=== PATIENT | female | born 1960 | race Caucasian/White ===

== ENCOUNTER 2016-08-12 21:28 | Inpatient (IN) | payer OTHER ==
--- NOTE | 2016-08-12 21:59 | PDOC ---
History of Present Illness - General Chief Complaint: Weakness Stated Complaint: WEAKNESS Time Seen by Provider: 08/12/16 21:43 History Source: Patient, Spouse Exam Limitations: No Limitations - History of Present Illness Initial Comments: 08/12/16 22:23 56-year-old female with a history of IDDM, bipolar, schizophrenia, hyperlipidemia, cardiac valve disease, hypothyroid presents to the emergency department with her and sister who states Faviola has been extremely lethargic with altered mental status which has been progressing over the past 3 days. Patient denies any headache, dizziness, lightheadedness, neck pain, chest pain, shortness of breath, abdominal pains, extremity numbness or tingling sensation. Patient was seen by her PMD 3 days ago and a follow-up visit is scheduled for 2 weeks from now to review the results of her blood work. Timing/Duration: other (x3d) Associated Symptoms: denies: chest pain, cough, diaphoresis, headaches, nausea/ vomiting, seizure Past History - Travel Traveled outside of the country in the last 30 days: No Close contact w/someone who was outside of country & ill: No - Past Medical History Allergies/Adverse Reactions: Allergies Allergy/AdvReac Type Severity Reaction Status Date / Time pimozide [From Orap] Allergy DYSTONIC Verified 08/12/16 21:33 REACTION risperidone [From Risperdal] AdvReac ANXIETY Verified 08/12/16 21:33 Home Medications: Ambulatory Orders Aripiprazole [Abilify -] 30 mg PO DAILY #30 tablet 04/20/15 Bupropion HCl [Wellbutrin Xl -] 300 mg PO DAILY #15 tab.sr.24h 04/22/15 Levothyroxine [Synthroid -] 150 mcg PO DAILY@0700 #30 tablet 04/22/15 Simvastatin [Zocor -] 20 mg PO HS #30 tablet 04/22/15 Sitagliptin Phosphate [Januvia] 100 mg PO DAILY #30 tablet 04/22/15 Insulin Glargine,Hum.rec.anlog [Lantus (nf)] 56 units SQ ACBK 11/04/15 Insulin Lispro [Humalog] 0 unit SQ AC 11/04/15 Hydrocodone/Acetaminophen [Vicodin 5-300 mg Tablet] 1 - 2 tab PO TID PRN #40 tablet MDD 6 11/09/15 Anemia: No Asthma: No Cancer: No Cardiac Disorders: Yes (LEAKY VALVE) CVA: No COPD: No CHF: No Dementia: No Diabetes: Yes GI Disorders: Yes Disorders: No HTN: Yes Hypercholesterolemia: Yes 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) Psychiatric Problems: Yes (BIPOLAR, DEPRESSION.) Suicide Attempt (Hx): No (DENIES) Seizures: No Thyroid Disease: Yes (HYPOTHYROIDISM) - Surgical History Abdominal Surgery: No Appendectomy: No Cardiac Surgery: No Cholecystectomy: No Lung Surgery: No Neurologic Surgery: No Orthopedic Surgery: Yes (RIGHT KNEE replacement 04/27/2011 /ltknee pinning ) - Immunization History Immunization Up to Date: No - Psycho/Social/Smoking Cessation Hx Anxiety: Yes Suicidal Ideation: No Smoking Status: No Smoking History: Never smoked Have you smoked in the past 12 months: No Number of Cigarettes Smoked Daily: 0 Hx Alcohol Use: No Drug/Substance Use Hx: No Substance Use Type: None Hx Substance Use Treatment: No Review of Systems - Review of Systems Able to Perform ROS?: Yes Comments:: 08/12/16 21:58 CONSTITUTIONAL: +generalized weakness, malaise, Absent: fever, chills, diaphoresis, loss of appetite HEENT: Absent: rhinorrhea, nasal congestion, throat pain, throat swelling, difficulty swallowing, mouth swelling, ear pain, eye pain, visual Changes CARDIOVASCULAR: Absent: chest pain, loss of consciousness, palpitations, irregular heart rate, peripheral edema RESPIRATORY: Absent: cough, shortness of breath, dyspnea with exertion, orthopnea, wheezing, stridor, hemoptysis GASTROINTESTINAL: Absent: abdominal pain, abdominal distension, nausea, vomiting, diarrhea, constipation, melena, hematochezia GENITOURINARY: Absent: dysuria, frequency, urgency, hesitancy, hematuria, flank pain, genital pain MUSCULOSKELETAL: Absent: myalgia, arthralgia, joint swelling SKIN: Absent: rash, itching, pallor HEMATOLOGIC/IMMUNOLOGIC: Absent: easy bleeding, easy bruising, lymphadenopathy, frequent infections ENDOCRINE: Absent: unexplained weight gain, unexplained weight loss, heat intolerance, cold intolerance NEUROLOGIC: +unsteady gait, mental status changes Absent: headache, focal weakness or paresthesias, dizziness, seizure, bladder or bowel incontinence PSYCHIATRIC: Absent: anxiety, depression, suicidal or homicidal ideation, hallucinations. Is the patient limited Maltese proficient: No *Physical Exam - Vital Signs Last Vital Signs Temp Pulse Resp BP Pulse Ox 97.5 F L 70 18 127/69 98 08/12/16 21:31 08/12/16 21:31 08/12/16 21:31 08/12/16 21:31 08/12/16 21:31 - Physical Exam Comments: 08/12/16 21:59 GENERAL: Well developed, well nourished. Awake and alert. No acute distress. HEENT: Normocephalic, atraumatic. PERRLA, EOMI. No conjunctival pallor. Sclera are non- icteric. Moist mucous membranes. Oropharynx is clear. NECK: Supple. Full ROM. No JVD. Carotid pulses 2+ and symmetric, without bruits. No thyromegaly. No lymphadenopathy. CARDIOVASCULAR: Regular rate and rhythm. No murmurs, rubs, or gallops. Distal pulses are 2+ and symmetric. PULMONARY: No evidence of respiratory distress. Lungs clear to auscultation bilaterally. No wheezing, rales or rhonchi. ABDOMINAL: Soft. Non-tender. Non-distended. No rebound or guarding. No organomegaly. Normoactive bowel sounds. MUSCULOSKELETAL Normal range of motion at all joints. No bony deformities or tenderness. No CVA tenderness. EXTREMITIES: No cyanosis. No clubbing. No edema. No calf tenderness. SKIN: Warm and dry. Normal capillary refill. No rashes. No jaundice. NEUROLOGICAL: Alert, awake, appropriate. Cranial nerves 2-12 intact. No deficits to light touch and temperature in face, upper extremities and lower extremities. No motor deficits in the in face, upper extremities and lower extremities. Normoreflexic in the upper and lower extremities. Normal speech. Toes are down- going bilaterally. Gait is normal without ataxia. PSYCHIATRIC: Cooperative. Good eye contact. Appropriate mood and affect. ED Treatment Course - LABORATORY CBC & Chemistry Diagram: 08/12/16 22:05 08/12/16 22:05 - RADIOLOGY Radiograph Interpretation: 08/12/16 23:40 CT head: No hemorrhage. No visible mass. No hydrocephalus shift or herniation. *DC/Admit/Observation/Transfer Diagnosis at time of Disposition: Altered mental status Qualifiers: Altered mental status type: unspecified Qualified Code(s): R41.82 - Altered mental status, unspecified - Discharge Dispostion Condition at time of disposition: Guarded Admit: Yes - Referrals Progress Note - Progress Note Progress Note: 2201hrs: Spoke to Dr. Ryan/ will admit AMS
[2016-08-12 22:22] LABS: BASOPHIL 0.4 % (0-2.0); EOSINOPHIL 0.5 % (0-4.5); MCH 28.8 pg (25.7-33.7); MCHC 33.2 g/dl (32.0-36.0); MEAN CELL VOLUME 86.7 fl (80-96); MEAN PLT VOLUME 8.1 fl (7.5-11.1); NEUTROPHILS 74.7 % (42.8-82.8); PLATELET COUNT 164 K/MM3 (134-434); WHITE BLOOD COUNT 8.1 K/mm3 (4.0-10.0)
[2016-08-12 22:50] LABS: ALBUMIN 3.9 g/dl (3.4-5.0); ANION GAP 6 (8-16); BILIRUBIN,TOTAL 0.5 mg/dL (0.2-1.0); CALCIUM 8.5 mg/dL (8.5-10.1); CO2 32 mmol/L (21-32); COCKROFT - GAULT 66.6655; CREATININE 1.2 mg/dL (0.55-1.02); GLUCOSE,RANDOM 128 mg/dL (74-106); SGOT/AST 29 U/L (15-37); SGPT/ALT 46 U/L (12-78); TOT PROT 7.3 g/dl (6.4-8.2)
[2016-08-12 22:53] LABS: ALK PHOS 101 U/L (45-117); TROPONIN I < 0.02 ng/ml (0.00-0.05)
[2016-08-12] MEDS: SODIUM CHLORIDE 1,000 ML IV SCH (23:27)
[2016-08-13 02:08] VITALS: BMI 40.1
[2016-08-13] MEDS: INSULIN DETEMIR 100 UNITS/ML MDV SQ SCH ×2 (06:27→16:51)
[2016-08-13] MEDS: LEVOTHYROXINE NA 125 MCG TABLET (FP) PO SCH (06:28)
[2016-08-13 08:37] LABS: ALBUMIN 3.5 g/dl (3.4-5.0); ALK PHOS 91 U/L (45-117); ANION GAP 5 (8-16); BILIRUBIN,TOTAL 0.4 mg/dL (0.2-1.0); CALCIUM 8.2 mg/dL (8.5-10.1); CO2 30 mmol/L (21-32); COCKROFT - GAULT 91.6045; CREATININE 0.9 mg/dL (0.55-1.02); GLUCOSE,RANDOM 56 mg/dL (74-106); SGOT/AST 26 U/L (15-37); SGPT/ALT 38 U/L (12-78); THYROID STIMULATING HORMONE 0.97 uIU/ml (0.358-3.74); TOT PROT 6.4 g/dl (6.4-8.2)
[2016-08-13 09:02] LABS: C-REACTIVE PROTEIN 0.4 MG/DL (0.00-0.3)
[2016-08-13] MEDS: PANTOPRAZOLE 40 MG TABLET (FP) PO SCH (09:37)
--- NOTE | 2016-08-13 10:31 | HP ---
Admitting History and Physical - Admission History of Present Illness: 56-year-old female with a history of IDDM, bipolar, schizophrenia, hyperlipidemia, cardiac valve disease, hypothyroid presents to the emergency department with her and sister who states Faviola has been extremely lethargic with altered mental status which has been progressing over the past 3 days. Patient denies any headache, dizziness, lightheadedness, neck pain, chest pain, shortness of breath, abdominal pains, extremity numbness or tingling sensation. Patient was seen 3 days prior to admission for inital visit in the office -blood where done and records requested - current medical management was not changed. History Source: Patient Limitations to Obtaining History: No Limitations, Clinical Condition - Past Medical History HEALTH EDITOR: Yes: Other (Depression--being seen at [facility]) Cardiovascular: Yes: Hyperlipdemia Gastrointestinal: Yes: Constipation, Other (obesity) ...: No Psych: Yes: Anxiety, Bipolar, Schizophrenia, Other (has psych issues but she does not remember what) Endocrine: Yes: Diabetes Mellitus, Hypothyroidism - Smoking History Smoking history: Never smoked Have you smoked in the past 12 months: No Aproximately how many cigarettes per day: 0 - Alcohol/Substance Use Hx Alcohol Use: No - Social History Usual Living Arrangement: Yes: With Spouse ADL: Independent History of Recent Travel: No Home Medications - Allergies Allergies/Adverse Reactions: Allergies Allergy/AdvReac Type Severity Reaction Status Date / Time pimozide [From Orap] Allergy DYSTONIC Verified 08/12/16 21:33 REACTION risperidone [From Risperdal] AdvReac ANXIETY Verified 08/12/16 21:33 - Home Medications Home Medications: Ambulatory Orders Aripiprazole [Abilify -] 30 mg PO DAILY #30 tablet 04/20/15 Bupropion HCl [Wellbutrin Xl -] 300 mg PO DAILY #15 tab.sr.24h 04/22/15 Levothyroxine [Synthroid -] 150 mcg PO DAILY@0700 #30 tablet 04/22/15 Simvastatin [Zocor -] 20 mg PO HS #30 tablet 04/22/15 Sitagliptin Phosphate [Januvia] 100 mg PO DAILY #30 tablet 04/22/15 Insulin Glargine,Hum.rec.anlog [Lantus (nf)] 56 units SQ ACBK 07/21/16 Insulin Lispro [Humalog] 0 unit SQ AC 11/04/15 Hydrocodone/Acetaminophen [Vicodin 5-300 mg Tablet] 1 - 2 tab PO TID PRN #40 tablet MDD 6 11/09/15 Review of Systems Findings/Remarks: patient seen and examined alone - she denies any change in her current condition - Has no insight / only concern is if her can visit and if she can go home in the morning - Review of Systems Constitutional: reports: No Symptoms Eyes: reports: No Symptoms HENT: reports: No Symptoms Neck: reports: No Symptoms Cardiovascular: reports: No Symptoms Respiratory: reports: No Symptoms Gastrointestinal: reports: Constipation Genitourinary: reports: No Symptoms Breasts: reports: No Symptoms Reported Musculoskeletal: reports: No Symptoms Integumentary: reports: No Symptoms Neurological: reports: No Symptoms Endocrine: reports: No Symptoms Hematology/Lymphatic: reports: No Symptoms Psychiatric: reports: No Symptoms Physical Examination Vital Signs: Vital Signs Temperature 98.2 F 08/13/16 08:13 Pulse Rate 64 08/13/16 08:13 Respiratory Rate 20 08/13/16 08:13 Blood Pressure 90/54 08/13/16 08:13 O2 Sat by Pulse Oximetry (%) 96 08/13/16 00:45 Constitutional: Yes: Well Nourished, No Distress, Calm Eyes: Yes: Conjunctiva Clear, EOM Intact HENT: Yes: WNL, Atraumatic, Normocephalic Neck: Yes: WNL, Supple, Trachea Midline Cardiovascular: Yes: WNL, Regular Rate and Rhythm, Murmur Respiratory: Yes: WNL, Regular, CTA Bilaterally Gastrointestinal: Yes: WNL, Normal Bowel Sounds Musculoskeletal: Yes: WNL Extremities: Yes: WNL Edema: No Peripheral Pulses WNL: Yes Integumentary: Yes: WNL Neurological: Yes: WNL, Alert, Oriented ...Motor Strength: WNL Labs: CBC, BMP 08/13/16 06:00 Problem List - Problems (1) Altered mental status Code(s): R41.82 - ALTERED MENTAL STATUS, UNSPECIFIED Qualifiers: Altered mental status type: unspecified Qualified Code(s): R41.82 - Altered mental status, unspecified (2) Diabetes mellitus Code(s): E11.9 - TYPE 2 DIABETES MELLITUS WITHOUT COMPLICATIONS Qualifiers: Diabetes mellitus type: type 2 (3) Hypothyroid Code(s): E03.9 - HYPOTHYROIDISM, UNSPECIFIED (4) Anxiety Code(s): F41.9 - ANXIETY DISORDER, UNSPECIFIED (5) Bipolar 1 disorder, depressed, mild Code(s): F31.31 - BIPOLAR DISORDER, CURRENT EPISODE DEPRESSED, MILD (6) Obesity Code(s): E66.9 - OBESITY, UNSPECIFIED (7) Schizophrenia Code(s): F20.9 - SCHIZOPHRENIA, UNSPECIFIED
[2016-08-13] MEDS ORDERED: ARIPiprazole 30 MG TABLET PO SCH (10:45)
[2016-08-13] MEDS ORDERED: ARIPiprazole 15 MG TABLET PO SCH (11:26)
--- NOTE | 2016-08-13 11:43 | CON.CARD ---
Cardiology Consult (text) - Consultation Consultation Note: cc: ams, lethargy hpi: 56 f hx dm, obesity, bipolar, hld here with ams. Pt reports hx of leaky valve, no further details. No cad/chf hx. No cp, sob, palps, dizzy, loc, pnd, orthopnea, le edema. Sent to er for ams. pmh: per hpi psh: knee surgery social: no tob fam: no premature cad or scd ros: per hpi; no fever, nvd, han, vision changes, cough, nasal congestion, muscle pain, gib meds: Home Medications Medication Instructions Recorded Aripiprazole [Abilify -] 30 mg PO DAILY #30 tablet 04/20/15 Bupropion HCl [Wellbutrin Xl -] 300 mg PO DAILY #15 tab.sr.24h 04/22/15 Levothyroxine [Synthroid -] 150 mcg PO DAILY@0700 #30 tablet 04/22/15 Simvastatin [Zocor -] 20 mg PO HS #30 tablet 04/22/15 Sitagliptin Phosphate [Januvia] 100 mg PO DAILY #30 tablet 04/22/15 Insulin Glargine,Hum.rec.anlog 56 units SQ ACBK 11/04/15 [Lantus (nf)] Insulin Lispro [Humalog] 0 unit SQ AC 11/04/15 Hydrocodone/Acetaminophen [Vicodin 1 - 2 tab PO TID PRN #40 tablet 11/09/15 5-300 mg Tablet] MDD 6 pe: Vital Signs Period Temp Pulse Resp BP Sys/Morton Pulse Ox Last 24 Hr 97.5 F-99.7 F 64-81 18-20 90-127/54-73 96-98 nad no jvd rrr s1s2 no mrg cta bl nl eff aaox3 no le e/c/c abd nt nd pos bs no jaundice diaphoresis pos dp pt no carotid bruits Laboratory Last Values WBC 8.1 K/mm3 (4.0-10.0) D 08/12/16 22:05 RBC 4.27 M/mm3 (3.60-5.2) D 08/12/16 22:05 Hgb 12.3 GM/dL (10.7-15.3) D 08/12/16 22:05 Hct 37.0 % (32.4-45.2) D 08/12/16 22:05 MCV 86.7 fl (80-96) 08/12/16 22:05 MCHC 33.2 g/dl (32.0-36.0) 08/12/16 22:05 RDW 14.0 % (11.6-15.6) 08/12/16 22:05 Plt Count 164 K/MM3 (134-434) D 08/12/16 22:05 MPV 8.1 fl (7.5-11.1) 08/12/16 22:05 Neutrophils % 74.7 % (42.8-82.8) 08/12/16 22:05 Lymphocytes % 19.5 % (8-40) 08/12/16 22:05 Monocytes % 4.9 % (3.8-10.2) 08/12/16 22:05 Eosinophils % 0.5 % (0-4.5) D 08/12/16 22:05 Basophils % 0.4 % (0-2.0) 08/12/16 22:05 Sodium 145 mmol/L (136-145) 08/13/16 06:00 Potassium 4.1 mmol/L (3.5-5.1) 08/13/16 06:00 Chloride 110 mmol/L (98-107) H 08/13/16 06:00 Carbon Dioxide 30 mmol/L (21-32) 08/13/16 06:00 Anion Gap 5 (8-16) L 08/13/16 06:00 BUN 13 mg/dL (7-18) 08/13/16 06:00 Creatinine 0.9 mg/dL (0.55-1.02) D 08/13/16 06:00 Creat Clearance w eGFR > 60 (>60) 08/13/16 06:00 POC Glucometer 162 UNITS (()) 08/13/16 06:26 Random Glucose 56 mg/dL (74-106) L D 08/13/16 06:00 Hemoglobin A1c % 6.5 % (4.8-6.0) H D 08/13/16 06:00 Calcium 8.2 mg/dL (8.5-10.1) L 08/13/16 06:00 Magnesium 2.5 mg/dL (1.8-2.4) H D 08/12/16 22:05 Total Bilirubin 0.4 mg/dL (0.2-1.0) 08/13/16 06:00 AST 26 U/L (15-37) 08/13/16 06:00 ALT 38 U/L (12-78) 08/13/16 06:00 Alkaline Phosphatase 91 U/L (45-117) 08/13/16 06:00 Creatine Kinase 131 IU/L (26-192) 08/12/16 22:05 Troponin I < 0.02 ng/ml (0.00-0.05) 08/12/16 22:05 C-Reactive Protein 0.4 MG/DL (0.00-0.3) H 08/13/16 06:00 Total Protein 6.4 g/dl (6.4-8.2) 08/13/16 06:00 Albumin 3.5 g/dl (3.4-5.0) 08/13/16 06:00 TSH 0.97 uIU/ml (0.358-3.74) D 08/13/16 06:00 cxr: clear lungs ecg 08/12/16: sr, nl intervals, no ischemic changes echo 04/2015: nl lv/rv, mild lae, no sig valve path a/p: 56 f hx dm, obesity, bipolar, hld here with ams. ams: -no obvious cardiac etiology, plans per pmd hld: -stable, diet control valvular disease: -pt reports hx of leaky valve, no further details -no murmur on exam, no signs chf -echo last year unremarkable here -will check updated echo to monitor valves obesity: -heart healthy diet, aerobic exercise, and wt loss discussed
[2016-08-13] MEDS: INSULIN SLIDING SCALE (NOVOLOG) 1 VIAL SQ SCH ×3 (12:37→21:41)
--- NOTE | 2016-08-13 14:16 | PN ---
Progress Note, Physician Chief Complaint: History of Bipolar disorder. - Current Medication List Current Medications: Active Medications Aripiprazole (Abilify) 30 mg PO DAILY [facility] Bupropion HCl (Wellbutrin -) 150 mg PO BID [facility] Sodium Chloride (Normal Saline -) 1,000 mls @ 150 mls/hr IV ASDIR [facility] Last Admin: 08/12/16 23:27 Dose: 150 mls/hr Insulin Aspart (Novolog Vial Sliding Scale -) 1 vial SQ ACHS [facility] PRN Reason: Protocol Last Admin: 08/13/16 12:37 Dose: 2 units Insulin Detemir (Levemir Vial) 30 units SQ BIDI [facility] Last Admin: 08/13/16 06:27 Dose: 30 unit Levothyroxine Sodium (Synthroid -) 125 mcg PO DAILY@0700 [facility] Last Admin: 08/13/16 06:28 Dose: 125 mcg Pantoprazole Sodium (Protonix -) 40 mg PO DAILY [facility] Last Admin: 08/13/16 09:37 Dose: 40 mg - Objective Vital Signs: Vital Signs Temperature 99.7 F H 08/13/16 10:00 Pulse Rate 81 08/13/16 10:00 Respiratory Rate 18 08/13/16 10:00 Blood Pressure 125/73 08/13/16 10:00 O2 Sat by Pulse Oximetry (%) 96 08/13/16 00:45 Labs: CBC, BMP 08/13/16 06:00 Problem List - Problems (1) Altered mental status Code(s): R41.82 - ALTERED MENTAL STATUS, UNSPECIFIED Qualifiers: Altered mental status type: unspecified Qualified Code(s): R41.82 - Altered mental status, unspecified Assessment/Plan Complained of lethargy. Disruoted sleep pattern sleeping during the day. client is currently on abilify 30 mg po daily, wellbutrin 150mg po bid. Recomend to taper down abilify to 20mg a day, spoke with Dr Jesus garcia same. Continue wellbutrin at current dose.
--- NOTE | 2016-08-13 14:25 | CON.NEURO ---
Consult Consult Specialty:: Neurology Referred by:: Dr. Ryan - History of Present Illness Chief Complaint: Pt. admitted for "Lethargy" History of Present Illness: 56-year-old female with a history of sleep apnea,IDDM, bipolar, schizophrenia, hyperlipidemia, cardiac valve disease, hypothyroid presents to the emergency department with her and sister who states Faviola has been extremely lethargic with altered mental status which has been progressing over the past 3 days. Patient denies any headache, dizziness, lightheadedness, neck pain, chest pain, shortness of breath, abdominal pains, extremity numbness or tingling sensation. Patient was seen 3 days prior to admission for inital visit in the office -blood where done and records requested - current medical management was not changed. Pt. reports she for last four days is having difficulty sleeping at night and has "bad dreams" that wake her up at night. She reports "nodding off" during the day . She has no other complaints and is stable on her psychiatric medications. I met with pts. and his cousin who look after pt. she was diagnosed with sleep apnea a few months ago, sleep study was done at [facility] a month ago and she was prescribed a CPAP machine which she has not received as yet. Her usual daily routine is that she wakes up in am, has breakfast and goes back to sleep, same occurs after lunch. She denies headaches , she snores at night and during day time sleep. - History Source History Provided By: Patient, Family Member - Past Medical History RN HEMO DIALYSIS: Yes: Other (Depression--being seen at [facility]) Cardio/Vascular: Yes: Hyperlipdemia Gastrointestinal: Yes: Constipation, Other (obesity) ...: No Psych: Yes: Anxiety, Bipolar, Schizophrenia, Other (has psych issues but she does not remember what) Endocrine: Yes: Diabetes Mellitus, Hypothyroidism - Alcohol/Substance Use Hx Alcohol Use: No - Smoking History Smoking history: Never smoked Have you smoked in the past 12 months: No Aproximately how many cigarettes per day: 0 - Social History Usual Living Arrangement: With Spouse ADL: Independent History of Recent Travel: No Home Medications - Allergies Allergies/Adverse Reactions: Allergies Allergy/AdvReac Type Severity Reaction Status Date / Time pimozide [From Orap] Allergy DYSTONIC Verified 08/12/16 21:33 REACTION risperidone [From Risperdal] AdvReac ANXIETY Verified 08/12/16 21:33 - Home Medications Home Medications: Ambulatory Orders Aripiprazole [Abilify -] 30 mg PO DAILY #30 tablet 04/20/15 Bupropion HCl [Wellbutrin Xl -] 300 mg PO DAILY #15 tab.sr.24h 04/22/15 Levothyroxine [Synthroid -] 150 mcg PO DAILY@0700 #30 tablet 04/22/15 Simvastatin [Zocor -] 20 mg PO HS #30 tablet 04/22/15 Sitagliptin Phosphate [Januvia] 100 mg PO DAILY #30 tablet 04/22/15 Insulin Glargine,Hum.rec.anlog [Lantus (nf)] 56 units SQ ACBK 11/04/15 Insulin Lispro [Humalog] 0 unit SQ AC 11/04/15 Hydrocodone/Acetaminophen [Vicodin 5-300 mg Tablet] 1 - 2 tab PO TID PRN #40 tablet MDD 6 11/09/15 Physical Exam-Neuro Vital Signs: Vital Signs Temperature 99.7 F H 08/13/16 10:00 Pulse Rate 81 08/13/16 10:00 Respiratory Rate 18 08/13/16 10:00 Blood Pressure 125/73 08/13/16 10:00 O2 Sat by Pulse Oximetry (%) 96 08/13/16 00:45 Labs: CBC, BMP 08/13/16 06:00 - Neuro Exam DTR's: 2+ Left Bicep, 2+ Right Bicep, 2+ Left Tricep, 2+ Right Tricep, 2+ Left Brachioradialis, 2+ Right Brachioradialis, 2+ Left Achilles, 2+ Right Achilles Babinski: Absent Response to light touch: Normal Response to pain prick: Normal Response to temperature: Normal Response to vibration: Normal Coordination: Normal: Finger to Nose, Heel to St, Precision Finger Tap, Pronator Drift Motor Strength: 5/5: Left Arm, Right Arm, Left Leg, Right Leg Gait: Normal, Ataxia, Deferred, Other NIH Stroke Scale - Total Score NIH Stroke Scale Score: 0 Imaging - Results Cat Scan: Image Reviewed (Appears without acute pathology. Await official reading.) Assessment/Plan Pt. with sleep apnea, schizophrenia, presenting with increased day time somnolence. Pt. does not appear delirious by history nor by exam. Her day-time somnolence is likely due to untreated sleep apnea-as per her she will receive her CPAP machine shortly, this will alleviate her day-time somnolence. No further neurologic intervention. Can request psychiatry to reduce Abilify dose. Thank you, Shantell Lee MD [phone]
--- NOTE | 2016-08-13 14:25 | PN ---
Mental Health Exam - Mental Status Exam Alert and Oriented to: Time, Place, Person Cognitive Function: Grossly Intact Patient Appearance: Well Groomed Mood: Elated, Anxious Affect: Appropriate Patient Behavior: Talkative, Cooperative Speech Pattern: Clear Voice Loudness: Normal Thought Process: Circumstantial Thought Disorder: Not Present Hallucinations: None Suicidal Ideation: None, Denies Homicidal Ideation: None Insight/Judgement: Fair Sleep: Poorly (Napping during the day. ) Appetite: Fair Muscle strength/Tone: Normal
[2016-08-13] MEDS ORDERED: PT OWN MED DRAWER 7, Y5N ONE ×2 (18:36→21:38)
[2016-08-13] MEDS: buPROPion HCL 75 MG TABLET PO SCH (21:39)
[2016-08-13 22:08] LABS: URINE APPEARANCE CLEAR; URINE BILIRUBIN NEGATIVE (NEGATIVE); URINE BLOOD NEGATIVE (NEGATIVE); URINE COLOR STRAW; URINE GLUCOSE (UA) NEGATIVE (NEGATIVE); URINE KETONE NEGATIVE (NEGATIVE); URINE LEUK ESTERASE NEGATIVE (NEGATIVE); URINE NITRITE NEGATIVE (NEGATIVE); URINE PROTEIN NEGATIVE (NEGATIVE); URINE UROBILINOGEN NEGATIVE E.U./dl (0.2-1.0)
--- NOTE | 2016-08-14 00:08 | EKG ---
Test Reason : Blood Pressure : / mmHG Vent. Rate : 068 BPM Atrial Rate : 068 BPM P-R Int : 162 ms QRS Dur : 082 ms QT Int : 402 ms P-R-T Axes : 020 011 006 degrees QTc Int : 427 ms NORMAL SINUS RHYTHM POSSIBLE LEFT ATRIAL ENLARGEMENT LOW VOLTAGE QRS SEPTAL INFARCT (CITED ON OR BEFORE 03-NOV-2015) ABNORMAL ECG WHEN COMPARED WITH ECG OF 03-NOV-2015 11:03, QUESTIONABLE CHANGE IN INITIAL FORCES OF SEPTAL LEADS Confirmed by PABLO SOTO MD ([id number]) on 08/14/2016 12:07:46 AM Referred By: Confirmed By:PABLO SOTO MD
[2016-08-14] MEDS: INSULIN DETEMIR 100 UNITS/ML MDV SQ SCH (06:08)
[2016-08-14] MEDS: INSULIN SLIDING SCALE (NOVOLOG) 1 VIAL SQ SCH ×2 (06:08→11:30)
[2016-08-14] MEDS: LEVOTHYROXINE NA 125 MCG TABLET (FP) PO SCH (06:48)
[2016-08-14 08:15] VITALS: BP 139/87; PULSE 89; TEMP 98.6
[2016-08-14] MEDS ORDERED: ARIPiprazole 10 MG TABLET PO SCH (10:07)
--- NOTE | 2016-08-14 10:19 | PN ---
Progress Note (short form) - Note Progress Note: notes reviewed appreciate Neuro / Cardio / psych consults case discussed with Dr Lee patient at baseline Aylin "salome" called case discussed with her - made aware of consultants opinion and change in medications she will follow up in office next week they are aware of need for "sleep apnea machine " - she has had 2 sleep studies done and both indicate its need I have re assured family patient is at baseline and will follow up at office Vital Signs Period Temp Pulse Resp BP Sys/Morton Pulse Ox Last 24 Hr 98.3 F-98.7 F 68-89 16-20 110-144/61-87 96 Active Medications Aripiprazole (Abilify) 20 mg PO DAILY [facility] Bupropion HCl (Wellbutrin -) 150 mg PO BID [facility] Last Admin: 08/13/16 21:39 Dose: 150 mg Sodium Chloride (Normal Saline -) 1,000 mls @ 150 mls/hr IV ASDIR [facility] Last Admin: 08/12/16 23:27 Dose: 150 mls/hr Insulin Aspart (Novolog Vial Sliding Scale -) 1 vial SQ ACHS [facility] PRN Reason: Protocol Last Admin: 08/14/16 06:08 Dose: Not Given Insulin Detemir (Levemir Vial) 30 units SQ BIDI [facility] Last Admin: 08/14/16 06:08 Dose: Not Given Levothyroxine Sodium (Synthroid -) 125 mcg PO DAILY@0700 [facility] Last Admin: 08/14/16 06:48 Dose: 125 mcg Pantoprazole Sodium (Protonix -) 40 mg PO DAILY [facility] Last Admin: 08/13/16 09:37 Dose: 40 mg CBC, BMP 08/12/16 22:05 08/13/16 06:00 sitting in bed requesting to go home neck supple heart reg s1/S2 lungs clear bilat abd soft non tender ext no edema / FROM Problem List - Problems (1) Anxiety Code(s): F41.9 - ANXIETY DISORDER, UNSPECIFIED (2) Bipolar 1 disorder, depressed, mild Code(s): F31.31 - BIPOLAR DISORDER, CURRENT EPISODE DEPRESSED, MILD (3) Constipation Code(s): K59.00 - CONSTIPATION, UNSPECIFIED (4) Depressed Code(s): F32.9 - MAJOR DEPRESSIVE DISORDER, SINGLE EPISODE, UNSPECIFIED (5) Diabetes mellitus Code(s): E11.9 - TYPE 2 DIABETES MELLITUS WITHOUT COMPLICATIONS Qualifiers: Diabetes mellitus type: type 1 (6) Dizziness Code(s): R42 - DIZZINESS AND GIDDINESS (7) Hypothyroid Code(s): E03.9 - HYPOTHYROIDISM, UNSPECIFIED (8) Obesity Code(s): E66.9 - OBESITY, UNSPECIFIED (9) Schizophrenia Code(s): F20.9 - SCHIZOPHRENIA, UNSPECIFIED (10) COPD (chronic obstructive pulmonary disease) Code(s): J44.9 - CHRONIC OBSTRUCTIVE PULMONARY DISEASE, UNSPECIFIED
[2016-08-14] MEDS ORDERED: PT OWN MED DRAWER 7, Y5N ONE (10:33)
[2016-08-14] MEDS: PANTOPRAZOLE 40 MG TABLET (FP) PO SCH (10:35)
[2016-08-14] MEDS: buPROPion HCL 75 MG TABLET PO SCH (10:36)
[2016-08-14] MEDS: SODIUM CHLORIDE 1,000 ML IV SCH (11:21)
== END 2016-08-14 14:31 | disposition home or self-care (01) | DRG 948 ==
LOC: JER 21:28 → JERBED 22:16 → J8W 08-13 00:37
PROVIDERS: ADMIT Family Medicine; ATTEND Family Medicine
DX: R41.82 Altered mental status, unspecified (principal); I38 Endocarditis, valve unspecified; Z68.41 Body mass index [BMI] 40.0-44.9, adult; E11.9 Type 2 diabetes mellitus without complications; E78.5 Hyperlipidemia, unspecified; F20.9 Schizophrenia, unspecified; F41.9 Anxiety disorder, unspecified; F31.9 Bipolar disorder, unspecified; E03.9 Hypothyroidism, unspecified; R16.0 Hepatomegaly, not elsewhere classified; R16.1 Splenomegaly, not elsewhere classified; G47.30 Sleep apnea, unspecified; E66.9 Obesity, unspecified; Z71.3 Dietary counseling and surveillance; Z79.4 Long term (current) use of insulin; Z96.651 Presence of right artificial knee joint
CPT/HCPCS: 36415; 70450-TC; 71020-TC; 80053; 81003; 82550; 83036; 83735; 84443; 84484; 86140; 93005; 93010; 93306-TC; 99284-25

== ENCOUNTER 2016-08-14 23:43 | Emergency (ER) | payer OTHER ==
[2016-08-15 00:05] VITALS: TEMP 97.1; BMI 26.6
--- NOTE | 2016-08-15 01:09 | PDOC ---
History of Present Illness - History of Present Illness Initial Comments: 08/15/16 01:09 Patient is a 56 year old female with significant medical hx of IDDM, bipolar, schizophrenia, hyperlipidemia, cardiac valve disease, hypothyroidism who is presenting to the ED for overdose of long acting Lantus from earlier tonight. Patient was recently discharged from hospital admission today (admitted 08/13 for AMS and lethargy). This morning she was given her dose of Lantus before discharge, which she is only supposed to take once a day in the morning. The patient was discharged this afternoon and she took another dose of 56 units this evening. Patients BGM was 219 in the ED. The patient is accompanied by family members and she does not offer any complaints. PMD: Neelam Ryan MD Commander Internal Affairs: Amairani Hernandez MD <Becki Connor - Last Filed: 08/15/16 01:09> <Kate Palmer - Last Filed: 08/16/16 01:44> - General Chief Complaint: Overdose Stated Complaint: INSULIN OVERDOSE Time Seen by Provider: 08/15/16 00:42 Past History <Becki Connor - Last Filed: 08/15/16 01:09> - Past Medical History Anemia: No Asthma: No Cancer: No Cardiac Disorders: Yes (LEAKY VALVE) CVA: No COPD: No CHF: No Dementia: No Diabetes: Yes GI Disorders: Yes Disorders: No HTN: Yes Hypercholesterolemia: Yes 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) Psychiatric Problems: Yes (BIPOLAR, DEPRESSION.) Suicide Attempt (Hx): No (DENIES) Seizures: No Thyroid Disease: Yes (HYPOTHYROIDISM) - Surgical History Abdominal Surgery: No Appendectomy: No Cardiac Surgery: No Cholecystectomy: No Lung Surgery: No Neurologic Surgery: No Orthopedic Surgery: Yes (RIGHT KNEE replacement 04/27/2011 /ltknee pinning ) - Immunization History Immunization Up to Date: No - Psycho/Social/Smoking Cessation Hx Anxiety: Yes Suicidal Ideation: No Smoking Status: No Smoking History: Never smoked Have you smoked in the past 12 months: No Number of Cigarettes Smoked Daily: 0 Information on smoking cessation initiated: No Hx Alcohol Use: No Drug/Substance Use Hx: No Substance Use Type: None Hx Substance Use Treatment: No <Kate Palmer - Last Filed: 08/16/16 01:44> - Past Medical History Allergies/Adverse Reactions: Allergies Allergy/AdvReac Type Severity Reaction Status Date / Time pimozide [From Orap] Allergy DYSTONIC Verified 08/15/16 00:02 REACTION risperidone [From Risperdal] AdvReac ANXIETY Verified 08/15/16 00:02 Home Medications: Ambulatory Orders Bupropion HCl [Wellbutrin Xl -] 300 mg PO DAILY #15 tab.sr.24h 04/22/15 Levothyroxine [Synthroid -] 150 mcg PO DAILY@0700 #30 tablet 04/22/15 Simvastatin [Zocor -] 20 mg PO HS #30 tablet 04/22/15 Sitagliptin Phosphate [Januvia] 100 mg PO DAILY #30 tablet 04/22/15 Insulin Glargine,Hum.rec.anlog [Lantus (10mL VIAL) -] 56 units SQ ACBK 11/04/15 Insulin Lispro [Humalog Kwikpen U-100] 0 unit SQ AC 11/04/15 Aripiprazole [Abilify -] 20 mg PO DAILY #30 tablet 08/14/16 Review of Systems - Review of Systems Comments:: 08/15/16 01:09 CONSTITUTIONAL: Absent: fever, chills, diaphoresis, generalized weakness, malaise, loss of appetite HEENT: Absent: rhinorrhea, nasal congestion, throat pain, throat swelling, difficulty swallowing, mouth swelling, ear pain, eye pain, visual changes CARDIOVASCULAR: Absent: chest pain, syncope, palpitations, irregular heart rate, lightheadedness , peripheral edema RESPIRATORY: Absent: cough, shortness of breath, dyspnea with exertion, orthopnea, wheezing, stridor, hemoptysis GASTROINTESTINAL: Absent: abdominal pain, abdominal distension, nausea, vomiting, diarrhea, constipation, melena, hematochezia GENITOURINARY: Absent: dysuria, frequency, urgency, hesitancy, hematuria, flank pain, genital pain MUSCULOSKELETAL: Absent: myalgia, arthralgia, joint swelling SKIN: Absent: rash, itching, pallor HEMATOLOGIC/IMMUNOLOGIC: Absent: easy bleeding, easy bruising, lymphadenopathy, frequent infections ENDOCRINE: Absent: unexplained weight gain, unexplained weight loss, heat intolerance, cold intolerance NEUROLOGIC: Absent: headache, focal weakness or paresthesia, dizziness, unsteady gait, seizure, mental status changes, bladder or bowel incontinence. PSYCHIATRIC: Absent: anxiety, depression, suicidal or homicidal ideation, hallucinations <GeetaBecki - Last Filed: 08/15/16 01:09> *Physical Exam - Vital Signs Last Vital Signs Temp Pulse Resp BP Pulse Ox 97.1 F L 73 18 118/63 98 08/15/16 00:02 08/15/16 00:02 08/15/16 00:02 08/15/16 00:02 08/15/16 00:02 - Physical Exam Comments: 08/15/16 01:09 GENERAL: Well developed, well nourished. Awake and alert. No acute distress. HEENT: Normocephalic, atraumatic. PERRLA, EOMI. No conjunctival pallor. Sclera are non- icteric. Moist mucous membranes. Oropharynx is clear. NECK: Supple. Full ROM. No JVD. Carotid pulses 2+ and symmetric, without bruits. No thyromegaly. No lymphadenopathy. CARDIOVASCULAR: Regular rate and rhythm. No murmurs, rubs, or gallops. Distal pulses are 2+ and symmetric. PULMONARY: No evidence of respiratory distress. Lungs clear to auscultation bilaterally. No wheezing, rales or rhonchi. ABDOMINAL: Protuberant. Soft. Non-tender. Non-distended. No rebound or guarding. No organomegaly. Normoactive bowel sounds. MUSCULOSKELETAL: Normal range of motion at all joints. No bony deformities or tenderness. No CVA tenderness. EXTREMITIES: No cyanosis. No clubbing. No edema. No calf tenderness. SKIN: Warm and dry. Normal capillary refill. No rashes. No jaundice. NEUROLOGICAL: Alert, awake, conversant. Cranial nerves 2-12 intact. Normal speech. Gait is normal without ataxia. PSYCHIATRIC: Cooperative. Good eye contact. Appropriate mood and affect. <Becki Connor - Last Filed: 08/15/16 01:09> - Vital Signs Last Vital Signs Temp Pulse Resp BP Pulse Ox 97.1 F L 73 18 118/63 98 08/15/16 00:02 08/15/16 00:02 08/15/16 00:02 08/15/16 00:02 08/15/16 00:02 <Kate Palmer - Last Filed: 08/16/16 01:44> Medical Decision Making - Medical Decision Making 08/16/16 01:41 This 56-year-old female presented to the emergency department because she accidentally took her Lantus dose twice in 24 hours. She became confused because she received Lantus while an inpatient at the hospital and then when she went home she forgot they have given her her Lantus and she took it again. She was supposed to take Lantus 56 units once each morning I spoke with Dr. Caesar Boyd cash register operator and the plan was to observe her during the evening and do frequent fingersticks. <Kate Palmer - Last Filed: 08/16/16 01:44> *DC/Admit/Observation/Transfer - Attestations Scribe Attestion: 08/15/16 01:10 Documentation prepared by Becki Connor, acting as medical management trainer for Kate Palmer MD. <Becki Connor - Last Filed: 08/15/16 01:09> <Kate Palmer - Last Filed: 08/16/16 01:44> Diagnosis at time of Disposition: Diabetes mellitus - Discharge Dispostion Disposition: HOME Condition at time of disposition: Stable - Referrals Referrals: Neelam Ryan MD [Primary Care Provider] - - Patient Instructions Printed Discharge Instructions: Type 1 Diabetes
--- NOTE | 2016-08-15 06:34 | PDOC ---
*Physical Exam - Vital Signs Last Vital Signs Temp Pulse Resp BP Pulse Ox 97.1 F L 73 18 118/63 98 08/15/16 00:02 08/15/16 00:02 08/15/16 00:02 08/15/16 00:02 08/15/16 00:02 ED Treatment Course - ADDITIONAL ORDERS Additional order review: Laboratory Results 08/15/16 00:01 POC Glucometer [id number] 08/15/16 00:01 POC Glucometer [id number] Medical Decision Making - Medical Decision Making 08/15/16 06:34 Pt hemodynamically stable. accucheck is 159 . Pt will be discharged. Advised not to use her lantus until tomorrow. *DC/Admit/Observation/Transfer Diagnosis at time of Disposition: Diabetes mellitus Qualifiers: Diabetes mellitus type: type 1 - Discharge Dispostion Disposition: HOME Condition at time of disposition: Stable Admit: No - Referrals Referrals: Neelam Ryan MD [Primary Care Provider] - - Patient Instructions Printed Discharge Instructions: Type 1 Diabetes - Post Discharge Activity
[2016-08-15 07:32] VITALS: BP 128/76; PULSE 66
== END 2016-08-15 09:31 | disposition home or self-care (01) ==
LOC: JER 23:43
DX: T38.3X1A Poisoning by insulin and oral hypoglycemic [antidiabetic] drugs, accidental (unintentional), initial encounter (principal); Y92.018 Other place in single-family (private) house as the place of occurrence of the external cause; E10.9 Type 1 diabetes mellitus without complications; Z79.4 Long term (current) use of insulin; F31.9 Bipolar disorder, unspecified; F20.0 Paranoid schizophrenia; E78.5 Hyperlipidemia, unspecified; E03.9 Hypothyroidism, unspecified
CPT/HCPCS: 99283-25

== ENCOUNTER 2016-08-25 12:24 | Emergency (ER) | payer OTHER ==
[2016-08-25 12:30] VITALS: BP 100/75; PULSE 60; TEMP 97; BMI 35.9
--- NOTE | 2016-08-25 13:38 | PDOC ---
History of Present Illness - General Chief Complaint: Injury Stated Complaint: FALL Time Seen by Provider: 08/25/16 12:58 History Source: Patient Exam Limitations: No Limitations - History of Present Illness Initial Comments: 08/25/16 13:36 Chief complaint: Left knee area tenderness History of present illness: Patient is a 56-year-old female with a history of insulin-dependent diabetes, hypertension, hyperlipidemia, hypothyroidism, schizoaffective disorder, and bilateral knee replacements here today after patient's right ankle twisted and patient fell landing on her left knee. Patient reports minimal tenderness of her left knee that is currently a 5 out of 10 for which she does not want any pain medications here now. Patient denies having any ankle pain right ankle or left or any other injuries. Patient did not hit her head. Patient has a reddened area slightly distal to her left knee with minimal swelling. Patient is able to ambulate without difficulty. Occurred: reports: just prior to arrival Severity: reports: mild Pain Location: reports: lower extremity (rt. knee) Method of Injury: Yes: fall Modifying Factors: improves with: None Past History - Past Medical History Allergies/Adverse Reactions: Allergies Allergy/AdvReac Type Severity Reaction Status Date / Time pimozide [From Orap] Allergy DYSTONIC Verified 08/25/16 12:28 REACTION risperidone [From Risperdal] AdvReac ANXIETY Verified 08/25/16 12:28 Home Medications: Ambulatory Orders Bupropion HCl [Wellbutrin Xl -] 300 mg PO DAILY #15 tab.sr.24h 04/22/15 Levothyroxine [Synthroid -] 150 mcg PO DAILY@0700 #30 tablet 04/22/15 Simvastatin [Zocor -] 20 mg PO HS #30 tablet 04/22/15 Sitagliptin Phosphate [Januvia] 100 mg PO DAILY #30 tablet 04/22/15 Insulin Glargine,Hum.rec.anlog [Lantus (10mL VIAL) -] 56 units SQ ACBK 11/04/15 Insulin Lispro [Humalog Kwikpen U-100] 0 unit SQ AC 11/04/15 Aripiprazole [Abilify -] 20 mg PO DAILY #30 tablet 08/14/16 Acetaminophen [Pain Relief] 650 mg PO Q6H PRN #20 capsule 08/25/16 Blood Sugar Diagnostic [Freestyle Lite Test Strips] 1 each MC TID #50 strip 04/01 Lancets [Freestyle Lancets] 1 each TID #1 each 08/25/16 Anemia: No Asthma: No Cancer: No Cardiac Disorders: Yes (LEAKY VALVE) CVA: No COPD: No CHF: No Dementia: No Diabetes: Yes GI Disorders: Yes Disorders: No HTN: Yes Hypercholesterolemia: Yes 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) Psychiatric Problems: Yes (BIPOLAR, DEPRESSION.) Suicide Attempt (Hx): No (DENIES) Seizures: No Thyroid Disease: Yes (HYPOTHYROIDISM) - Surgical History Abdominal Surgery: No Appendectomy: No Cardiac Surgery: No Cholecystectomy: No Lung Surgery: No Neurologic Surgery: No Orthopedic Surgery: Yes (RIGHT KNEE replacement 04/27/2011 /ltknee pinning ) - Immunization History Immunization Up to Date: No - Psycho/Social/Smoking Cessation Hx Anxiety: Yes Suicidal Ideation: No Smoking Status: No Smoking History: Never smoked Have you smoked in the past 12 months: No Number of Cigarettes Smoked Daily: 0 Information on smoking cessation initiated: No Hx Alcohol Use: No Drug/Substance Use Hx: No Substance Use Type: None Hx Substance Use Treatment: No Review of Systems - Review of Systems Able to Perform ROS?: Yes Constitutional: No: Symptoms Reported HEENTM: No: Symptoms Reported Respiratory: No: Symptoms reported Cardiac (ROS): No: Symptoms Reported ABD/GI: No: Symptoms Reported : No: Symptoms Reported Musculoskeletal: Yes: Joint Pain (left knee), Joint Swelling (minimal left knee slightly below left knee) Integumentary: Yes: Erythema (area of erythema slightly distal to left knee with minimal edema/slight tenderness) Neurological: No: Symptoms reported *Physical Exam - Vital Signs Last Vital Signs Temp Pulse Resp BP Pulse Ox 97 F L 60 20 100/75 98 08/25/16 12:28 08/25/16 12:28 08/25/16 12:28 08/25/16 12:28 08/25/16 12:28 - Physical Exam General Appearance: Yes: Appropriately Dressed Respiratory/Chest: positive: Lungs Clear, Normal Breath Sounds. negative: Chest Tender, Respiratory Distress Cardiovascular: positive: Regular Rhythm, Regular Rate, S1, S2 Vascular Pulses: Dorsalis-Pedis (R): 4+, Doralis-Pedis (L): 4+ Extremity: positive: Normal Capillary Refill, Normal Range of Motion (b/l knees , b/l ankles), Tender (left knee minimal ), Other (no crepitus, negative anterior/posterior drawer left knee) Integumentary: positive: Other (area of erythema slightly distal to left knee with minimal edema/slight tenderness) Neurologic: positive: Alert, Normal Response, Responsive ED Treatment Course - RADIOLOGY Radiology Studies Ordered: Category Date Time Status KNEE 3 POS-LEFT [RAD] Stat Radiology 08/25/16 13:30 Ordered Medical Decision Making - Medical Decision Making 08/25/16 13:38 Patient is a 56-year-old female with a history of insulin-dependent diabetes, hypertension, hyperlipidemia, hypothyroidism, schizoaffective disorder, and bilateral knee replacements here today after patient's right ankle twisted and patient fell landing on her left knee. Patient reports minimal tenderness of her left knee that is currently a 5 out of 10 for which she does not want any pain medications here now. Patient denies having any ankle pain right ankle or left or any other injuries. Patient did not hit her head. Patient has a reddened area slightly distal to her left knee with minimal swelling. Patient is able to ambulate without difficulty. Left knee tenderness with minimal edema/erythema slightly r/o betito abnormality left knee Fall PLAN: xray left knee sleeve was stable appearing hardware per Dr. Campa she healed postsurgical changes in the region of the anterior tibial tuberosity with stable appearing hardware Dr. Bell Acetaminophen 650 mg every 6 hrs prn pain follow up with Dr. Merrill your orthopedist 08/25/16 14:20 *DC/Admit/Observation/Transfer Diagnosis at time of Disposition: Contusion of knee and lower leg Qualifiers: Encounter type: initial encounter Laterality: left Qualified Code(s): S80.02XA - Contusion of left knee, initial encounter - Discharge Dispostion Disposition: HOME Condition at time of disposition: Stable - Patient Instructions Additional Instructions: Plan ice every 2 hours for 15 minutes to left leg where area of swelling just below your knee today while awake Take acetaminophen Tylenol as needed for pain as directed by security system analyst Follow-up with your orthopedist within the next few days Return to emergency room if symptoms worsen or new symptoms develop Patient voiced understanding of discharge instructions and all questions were answered
== END 2016-08-25 14:24 | disposition home or self-care (01) ==
LOC: JERFT 12:24
DX: S80.02XA Contusion of left knee, initial encounter (principal); I10 Essential (primary) hypertension; E11.9 Type 2 diabetes mellitus without complications; Z79.4 Long term (current) use of insulin; Z79.84 Long term (current) use of oral hypoglycemic drugs; E78.5 Hyperlipidemia, unspecified; E03.9 Hypothyroidism, unspecified; F25.9 Schizoaffective disorder, unspecified; F31.9 Bipolar disorder, unspecified; F32.9 Major depressive disorder, single episode, unspecified; Z96.653 Presence of artificial knee joint, bilateral; W18.39XA Other fall on same level, initial encounter; Y93.89 Activity, other specified; Y92.89 Other specified places as the place of occurrence of the external cause; Y99.8 Other external cause status
CPT/HCPCS: 73562-TC-LT; 99281-25

== ENCOUNTER 2016-09-29 18:24 | Emergency (ER) | payer OTHER ==
[2016-09-29 18:29] VITALS: TEMP 98.3; BMI 38.0
--- NOTE | 2016-09-29 19:40 | PDOC ---
History of Present Illness - General History Source: Patient Exam Limitations: No Limitations - History of Present Illness Initial Comments: 09/29/16 20:08 The patient is a 56 year old female, accompanied by spouse, with no significant past medical history of bipolar disorder, depression, hypothyroidism, diabetes, hypertension, hyperlipidemia, and cardiac valve disease , who presents to the emergency department complaining of memory loss since earlier today. The patient reports she went to take a shower earlier today and stated she had to get ready for her program. As per , the patient had already attended her program this morning. reports the patients combo welder stated the patient was increasingly confused and disoriented when he stepped out. The patient denies any suicidal or homicidal ideations. The patient reports she has lost 20 pounds within the past couple of weeks, because she is trying to lose weight, but states she is able to eat and drink normally. However, she reports some vaginal itching and dysuria, but denies hematuria, frequency, or urgency. The patient is compliant with her medications and her diabetes is well controlled. As per family members, the patient is never home alone. The patient denies any abdominal pain, nausea, vomiting, diarrhea, or constipation. The patient denies any fever, chills, cough, headache, or dizziness. The patient denies any recent travel or sick contacts. Allergies: Pimozide, risperidone Past Surgical History: Right knee replacement Social History: Non smoker. No ETOH or drug use PCP: Dr. Ryan Computer Support Technician: Dr. Hernandez <Luiz Garsia - Last Filed: 09/29/16 20:08> <Inna Birmingham - Last Filed: 09/29/16 23:41> - General Chief Complaint: Altered Mental Status Stated Complaint: LOSS OF MEMORY Time Seen by Provider: 09/29/16 19:25 Past History <Luiz Garsia - Last Filed: 09/29/16 20:08> - Past Medical History Anemia: No Asthma: No Cancer: No Cardiac Disorders: Yes (LEAKY VALVE) CVA: No COPD: No CHF: No Dementia: No Diabetes: Yes GI Disorders: Yes Disorders: No HTN: Yes Hypercholesterolemia: Yes 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) Psychiatric Problems: Yes (BIPOLAR, DEPRESSION.) Suicide Attempt (Hx): No (DENIES) Seizures: No Thyroid Disease: Yes (HYPOTHYROIDISM) - Surgical History Abdominal Surgery: No Appendectomy: No Cardiac Surgery: No Cholecystectomy: No Lung Surgery: No Neurologic Surgery: No Orthopedic Surgery: Yes (RIGHT KNEE replacement 04/27/2011 /ltknee pinning ) - Immunization History Immunization Up to Date: No - Psycho/Social/Smoking Cessation Hx Anxiety: Yes Suicidal Ideation: No Smoking Status: No Smoking History: Never smoked Have you smoked in the past 12 months: No Number of Cigarettes Smoked Daily: 0 Hx Alcohol Use: No Drug/Substance Use Hx: No Substance Use Type: None Hx Substance Use Treatment: No <Inna Birmingham - Last Filed: 09/29/16 23:41> - Past Medical History Allergies/Adverse Reactions: Allergies Allergy/AdvReac Type Severity Reaction Status Date / Time pimozide [From Orap] Allergy DYSTONIC Verified 09/29/16 18:29 REACTION risperidone [From Risperdal] AdvReac ANXIETY Verified 09/29/16 18:29 Home Medications: Ambulatory Orders Bupropion HCl [Wellbutrin Xl -] 300 mg PO DAILY #15 tab.sr.24h 04/22/15 Levothyroxine [Synthroid -] 150 mcg PO DAILY@0700 #30 tablet 04/22/15 Simvastatin [Zocor -] 20 mg PO HS #30 tablet 04/22/15 Sitagliptin Phosphate [Januvia] 100 mg PO DAILY #30 tablet 04/22/15 Insulin Glargine,Hum.rec.anlog [Lantus (10mL VIAL) -] 56 units SQ ACBK 11/04/15 Insulin Lispro [Humalog Kwikpen U-100] 0 unit SQ AC 11/04/15 Aripiprazole [Abilify -] 20 mg PO DAILY #30 tablet 08/14/16 Acetaminophen [Pain Relief] 650 mg PO Q6H PRN #20 capsule 08/25/16 Blood Sugar Diagnostic [Freestyle Lite Test Strips] 1 each MC TID #50 strip 04/01 Lancets [Freestyle Lancets] 1 each MC TID #1 each 08/25/16 Nitrofurantoin Monohyd/M-Cryst [Macrobid -] 100 mg PO BID #14 capsule 09/29/16 Review of Systems - Review of Systems Able to Perform ROS?: Yes Comments:: 09/29/16 20:08 GENERAL/CONSTITUTIONAL: No fever or chills. No weakness. HEAD, EYES, EARS, NOSE AND THROAT: No change in vision. No ear pain or discharge. No sore throat. CARDIOVASCULAR: No chest pain or shortness of breath. RESPIRATORY: No cough, wheezing, or hemoptysis. GASTROINTESTINAL: No nausea, vomiting, diarrhea or constipation. GENITOURINARY: Yes: +vaginal itching, +dysuria. No frequency, or change in urination. MUSCULOSKELETAL: No joint or muscle swelling or pain. No neck or back pain. SKIN: No rash NEUROLOGIC: Yes: +Memory loss, +disoriented. No headache, vertigo, loss of consciousness, or change in strength/sensation. ENDOCRINE: Yes: +weight lossNo increased thirst. HEMATOLOGIC/LYMPHATIC: No anemia, easy bleeding, or history of blood clots. ALLERGIC/IMMUNOLOGIC: No hives or skin allergy. <Garsia,Giomilsy - Last Filed: 09/29/16 20:08> *Physical Exam - Vital Signs Last Vital Signs Temp Pulse Resp BP Pulse Ox 98.3 F 64 18 98/59 95 09/29/16 18:25 09/29/16 18:25 09/29/16 18:25 09/29/16 18:25 09/29/16 18:25 - Physical Exam Comments: 09/29/16 20:08 GENERAL: Awake, alert, and fully oriented, in no acute distress HEAD: No signs of trauma EYES: PERRLA, EOMI, sclera anicteric, conjunctiva clear ENT: Auricles normal inspection, hearing grossly normal, nares patent, oropharynx clear without exudates. Moist mucosa NECK: Normal ROM, supple, no lymphadenopathy, JVD, or masses LUNGS: Breath sounds equal, clear to auscultation bilaterally. No wheezes, and no crackles HEART: Regular rate and rhythm, normal S1 and S2, no murmurs, rubs or gallops ABDOMEN: Soft, nontender, normoactive bowel sounds. No guarding, no rebound. No masses EXTREMITIES: Normal range of motion, no edema. No clubbing or cyanosis. No cords, erythema, or tenderness NEUROLOGICAL: Cranial nerves II through XII grossly intact. Normal speech, normal gait SKIN: Warm, Dry, normal turgor, no rashes or lesions noted. <Luiz Garsia - Last Filed: 09/29/16 20:08> - Vital Signs Last Vital Signs Temp Pulse Resp BP Pulse Ox 98.3 F 64 18 98/59 95 09/29/16 18:25 09/29/16 18:25 09/29/16 18:25 09/29/16 18:25 09/29/16 18:25 <Inna Birmingham - Last Filed: 09/29/16 23:41> ED Treatment Course - LABORATORY CBC & Chemistry Diagram: 09/29/16 20:01 09/29/16 20:01 <Luiz Garsia - Last Filed: 09/29/16 20:08> - LABORATORY CBC & Chemistry Diagram: 09/29/16 20:01 09/29/16 20:01 <Inna Birmingham - Last Filed: 09/29/16 23:41> Medical Decision Making - Medical Decision Making 09/29/16 23:36 Pt was slightly confused today, she awoke from a nap and forgot that she had already gone to her psych day program, and she began to get ready to return to the day program. and cousin bring her in for eval. In the ER, pt is alert and oriented x 3 and in no distress. SHe states that she is losing weight as she is on a diet, otherwise eating normally and getting rest. She complains of dysuria, but rest of exam is normal. She has no other complaints, and urinalysis reveals UTI. Rest of exam normal. Labs normal, and pt hydrated in the ER. 09/29/16 23:40 CT head done 3 months ago was normal. I will not repeat one at this time, given normal neuro exam. <Inna Birmingham - Last Filed: 09/29/16 23:41> *DC/Admit/Observation/Transfer - Attestations Scribe Attestion: 09/29/16 20:09 Documentation prepared by Luiz Garsia, acting as medical instrument technician for Inna Birmingham MD. <Luiz Garsia - Last Filed: 09/29/16 20:08> <Inna Birmingham - Last Filed: 09/29/16 23:41> Diagnosis at time of Disposition: UTI (urinary tract infection) - Discharge Dispostion Disposition: HOME Condition at time of disposition: Stable - Prescriptions Prescriptions: Nitrofurantoin Monohyd/M-Cryst [Macrobid -] 100 mg PO BID #14 capsule - Referrals Referrals: Neelam Ryan MD [Primary Care Provider] - - Patient Instructions Printed Discharge Instructions: Urinary Tract Infection
[2016-09-29 20:09] LABS: BASOPHIL 0.9 % (0-2.0); EOSINOPHIL 2.6 % (0-4.5); MCH 28.7 pg (25.7-33.7); MCHC 33.6 g/dl (32.0-36.0); MEAN CELL VOLUME 85.6 fl (80-96); MEAN PLT VOLUME 8.4 fl (7.5-11.1); NEUTROPHILS 57.7 % (42.8-82.8); PLATELET COUNT 162 K/MM3 (134-434); RDW 13.4 % (11.6-15.6)
[2016-09-29 20:28] LABS: ACETONE SERUM NEGATIVE (NEGATIVE)
[2016-09-29 20:30] LABS: ALBUMIN 3.9 g/dl (3.4-5.0); ANION GAP 6 (8-16); BILIRUBIN,TOTAL 0.5 mg/dL (0.2-1.0); CALCIUM 9.2 mg/dL (8.5-10.1); CO2 27 mmol/L (21-32); CREATININE 0.8 mg/dL (0.55-1.02); GLUCOSE,RANDOM 87 mg/dL (74-106); SGOT/AST 21 U/L (15-37); SGPT/ALT 36 U/L (12-78); TOT PROT 7.3 g/dl (6.4-8.2)
[2016-09-29 20:31] LABS: ALK PHOS 87 U/L (45-117)
[2016-09-29 21:13] LABS: URINE APPEARANCE CLOUDY; URINE BILIRUBIN NEGATIVE (NEGATIVE); URINE COLOR LTYELLOW; URINE GLUCOSE (UA) NEGATIVE (NEGATIVE); URINE KETONE NEGATIVE (NEGATIVE); URINE NITRITE NEGATIVE (NEGATIVE); URINE PROTEIN NEGATIVE (NEGATIVE); URINE UROBILINOGEN NEGATIVE E.U./dl (0.2-1.0)
[2016-09-29 21:15] LABS: URINE BLOOD 1+ (NEGATIVE)
[2016-09-29 21:16] LABS: URINE LEUK ESTERASE 3+ (NEGATIVE)
[2016-09-29 21:18] LABS: URINE MUCUS RARE; URINE RBC 103 /hpf (0-3); URINE WBC 155 /hpf (3-5)
[2016-09-29] MEDS ORDERED: NITROFURANTOIN MACROCRYSTAL 50 MG CAPSULE (FP) PO SCH (21:30)
[2016-09-29] MEDS ORDERED: NITROFURANTOIN MACROCRYSTAL 50 MG CAPSULE (FP) ONE (21:56)
[2016-09-29 22:12] VITALS: BP 103/60; PULSE 69
== END 2016-09-29 21:57 | disposition home or self-care (01) ==
LOC: JER 18:24
DX: N39.0 Urinary tract infection, site not specified (principal); I10 Essential (primary) hypertension; E11.9 Type 2 diabetes mellitus without complications; E78.00 Pure hypercholesterolemia, unspecified; F31.9 Bipolar disorder, unspecified
CPT/HCPCS: 36415; 80053; 81003; 81015; 82009; 84443; 85025; 99282-25

== ENCOUNTER 2017-02-05 18:22 | Emergency (ER) | payer OTHER ==
[2017-02-05 18:26] VITALS: BP 104/67; PULSE 76; TEMP 98.6; BMI 32.6
--- NOTE | 2017-02-05 19:46 | PDOC ---
History of Present Illness - General History Source: Patient Exam Limitations: No Limitations - History of Present Illness Initial Comments: 02/05/17 19:59 The patient is a 57 year old female with a significant PMH of bipolar disorder, depression, hypothyroidism, diabetes, HTN, hyperlipidemia, and cardiac valve disease who presents to the emergency department with left ear pain and dry mouth beginning approximately 1 week ago. The patient notes associated sore throat and cough with her dry mouth. She also reports significant weight loss from May to the present, which her primary provider is aware about and has been working her up for. The patient denies chest pain, shortness of breath, headache and dizziness. Allergies: Pimozide. Risperidone. Past surgical history: Right knee replacement. Social history: No reported cigarette, alcohol, or drug use. PCP: Dr. Ryan <Hansel Gonsales - Last Filed: 02/05/17 21:34> <Elma Gonzáles - Last Filed: 02/05/17 23:32> - General Chief Complaint: Sore Throat Stated Complaint: SORE THROAT Time Seen by Provider: 02/05/17 19:13 Past History <Hansel Gonsales - Last Filed: 02/05/17 21:34> - Past Medical History Anemia: No Asthma: No Cancer: No Cardiac Disorders: Yes (LEAKY VALVE) CVA: No COPD: No CHF: No Dementia: No Diabetes: Yes GI Disorders: Yes Disorders: No HTN: Yes Hypercholesterolemia: Yes 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) Psychiatric Problems: Yes (BIPOLAR, DEPRESSION.) Seizures: No Thyroid Disease: Yes (HYPOTHYROIDISM) - Surgical History Abdominal Surgery: No Appendectomy: No Cardiac Surgery: No Cholecystectomy: No Lung Surgery: No Neurologic Surgery: No Orthopedic Surgery: Yes (RIGHT KNEE replacement 04/27/2011 /ltknee pinning ) - Immunization History Immunization Up to Date: No - Suicide/Smoking/Psychosocial Hx Smoking Status: No Smoking History: Never smoked Have you smoked in the past 12 months: No Number of Cigarettes Smoked Daily: 0 Information on smoking cessation initiated: No Hx Alcohol Use: No Drug/Substance Use Hx: No Substance Use Type: None Hx Substance Use Treatment: No <Elma Gonzáles - Last Filed: 02/05/17 23:32> - Past Medical History Allergies/Adverse Reactions: Allergies Allergy/AdvReac Type Severity Reaction Status Date / Time pimozide [From Orap] Allergy DYSTONIC Verified 02/05/17 18:26 REACTION risperidone [From Risperdal] AdvReac ANXIETY Verified 02/05/17 18:26 Home Medications: Ambulatory Orders Bupropion HCl [Wellbutrin Xl -] 300 mg PO DAILY #15 tab.sr.24h 04/22/15 Levothyroxine [Synthroid -] 150 mcg PO DAILY@0700 #30 tablet 04/22/15 Simvastatin [Zocor -] 20 mg PO HS #30 tablet 04/22/15 Sitagliptin Phosphate [Januvia] 100 mg PO DAILY #30 tablet 04/22/15 Insulin Glargine,Hum.rec.anlog [Lantus (10mL VIAL) -] 56 units SQ ACBK 11/04/15 Insulin Lispro [Humalog Kwikpen U-100] 0 unit SQ AC 11/04/15 Aripiprazole [Abilify -] 20 mg PO DAILY #30 tablet 08/14/16 Blood Sugar Diagnostic [Freestyle Lite Test Strips] 1 each MC TID #50 strip 04/01 Lancets [Freestyle Lancets] 1 each MC TID #1 each 08/25/16 Amox-Tr/K Cl [Augmentin - 875Mg Tablet] 1 tab PO BID #14 tablet 02/05/17 Review of Systems - Review of Systems Able to Perform ROS?: Yes Comments:: 02/05/17 19:59 GENERAL/CONSTITUTIONAL: No fever or chills. No weakness. HEAD, EYES, EARS, NOSE AND THROAT: (+) Left ear pain. (+) Dry mouth. (+) Sore throat. No change in vision. No ear discharge. CARDIOVASCULAR: No chest pain or shortness of breath. RESPIRATORY: No cough, wheezing, or hemoptysis. MUSCULOSKELETAL: No joint or muscle swelling or pain. No neck or back pain. NEUROLOGIC: No headache, vertigo, loss of consciousness, or change in strength/ sensation. <Hansel Gonsales - Last Filed: 02/05/17 21:34> *Physical Exam - Vital Signs Last Vital Signs Temp Pulse Resp BP Pulse Ox 98.6 F 76 19 104/67 97 02/05/17 18:23 02/05/17 18:23 02/05/17 18:23 02/05/17 18:23 02/05/17 18:23 - Physical Exam Comments: 02/05/17 19:59 GENERAL: Awake, alert, and fully oriented, in no acute distress EYES: PERRLA, EOMI, sclera anicteric, conjunctiva clear ENT: (+) Xerostomia. (+) Very dry mucosa. (+) Left ear canal infection with erythema. Auricles normal inspection, hearing grossly normal, nares patent, oropharynx clear without exudates. LUNGS: Breath sounds equal, clear to auscultation bilaterally. No wheezes, and no crackles HEART: Regular rate and rhythm, normal S1 and S2, no murmurs, rubs or gallops NEUROLOGICAL: Cranial nerves II through XII grossly intact. Normal speech, normal gait <Hansel Gonsales - Last Filed: 02/05/17 21:34> - Vital Signs Last Vital Signs Temp Pulse Resp BP Pulse Ox 98.6 F 76 19 104/67 97 02/05/17 18:23 02/05/17 18:23 02/05/17 18:23 02/05/17 18:23 02/05/17 18:23 <Elma Gonzáles - Last Filed: 02/05/17 23:32> Medical Decision Making - Medical Decision Making 02/05/17 23:27 A/P: Patient here for evaluation of left-sided throat pain and dry mouth, patient with a history of dry mouth from her psychotropic medications. Rapid strep sent and negative. Discharge patient home for treatment of acute otitis media on Augmentin, follow-up with primary care doctor so for dry mouth. Spoke to family patient needs to be followed up, medication needs to be reviewed since patient has chronic issue with dry mouth from medication. I discussed the physical exam findings, ancillary test results and final diagnoses with the patient. I answered all of the patient's questions. The patient was satisfied with the care received and felt comfortable with the discharge plan and treatment plan. The patient will call to arrange follow-up and will return to the Emergency Department with any new, persistent or worsening symptoms. <Elma Gonzáles - Last Filed: 02/05/17 23:32> *DC/Admit/Observation/Transfer - Attestations Scribe Attestion: 02/05/17 20:00 Documentation prepared by Hansel Gonsales, acting as medical typist for Elma Gonzáles FNP. <Hansel Gonsales - Last Filed: 02/05/17 21:34> - Discharge Dispostion Admit: No <Elma Gonzáles - Last Filed: 02/05/17 23:32> Diagnosis at time of Disposition: Xerostomia, Otitis media - Discharge Dispostion Disposition: HOME Condition at time of disposition: Good - Prescriptions Prescriptions: Amox-Tr/K Cl [Augmentin - 875Mg Tablet] 1 tab PO BID #14 tablet - Referrals Referrals: Neelam Ryan MD [Primary Care Provider] - - Patient Instructions Additional Instructions: Please follow-up with your primary care doctor in the next 24 hours, please let him know of your dry mouth. You will need further assessment. If you develop fever, chest pain, shortness of breath, or any other concerns make sure to return immediately to emergency department. Antibiotics as ordered for your ear infection
== END 2017-02-05 21:38 | disposition home or self-care (01) ==
LOC: JERFT 18:22
DX: K11.7 Disturbances of salivary secretion (principal); R68.2 Dry mouth, unspecified; H66.92 Otitis media, unspecified, left ear; I10 Essential (primary) hypertension; E11.9 Type 2 diabetes mellitus without complications; Z79.4 Long term (current) use of insulin; E78.5 Hyperlipidemia, unspecified; E03.9 Hypothyroidism, unspecified; F31.9 Bipolar disorder, unspecified
CPT/HCPCS: 87070; 87430; 99281-25

== ENCOUNTER 2017-07-11 12:28 | Emergency (ER) | payer OTHER ==
[2017-07-11 12:35] VITALS: TEMP 98; BMI 30.2
[2017-07-11] MEDS ORDERED: SODIUM CHLORIDE 1,000 ML IV STA (15:19)
--- NOTE | 2017-07-11 15:19 | PDOC ---
History of Present Illness - General Chief Complaint: Pain Stated Complaint: DIARRHEA Time Seen by Provider: 07/11/17 14:47 Past History - Past Medical History Allergies/Adverse Reactions: Allergies Allergy/AdvReac Type Severity Reaction Status Date / Time pimozide [From Orap] Allergy DYSTONIC Verified 07/11/17 12:35 REACTION risperidone [From Risperdal] AdvReac ANXIETY Verified 07/11/17 12:35 Home Medications: Ambulatory Orders Aripiprazole [Abilify] 20 mg PO DAILY 07/11/17 Benztropine Mesylate [Cogentin -] 0 mg PO DAILY 07/11/17 Bupropion HCl [Wellbutrin Xl] 300 mg PO DAILY 07/11/17 Cephalexin Monohydrate [Keflex -] 500 mg PO BID #14 capsule 07/11/17 Levothyroxine [Synthroid -] 150 mcg PO DAILY 07/11/17 Sertraline HCl [Zoloft] 0 mg PO DAILY 07/11/17 Simvastatin [Zocor -] 20 mg PO HS 07/11/17 Anemia: No Asthma: No Cancer: No Cardiac Disorders: Yes (LEAKY VALVE) CVA: No COPD: No CHF: No Dementia: No Diabetes: Yes GI Disorders: Yes Disorders: No HTN: Yes Hypercholesterolemia: Yes 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) Psychiatric Problems: Yes (BIPOLAR, DEPRESSION.) Seizures: No Thyroid Disease: Yes (HYPOTHYROIDISM) - Surgical History Abdominal Surgery: No Appendectomy: No Cardiac Surgery: No Cholecystectomy: No Lung Surgery: No Neurologic Surgery: No Orthopedic Surgery: Yes (RIGHT KNEE replacement 04/27/2011 /ltknee pinning ) - Immunization History Immunization Up to Date: No - Suicide/Smoking/Psychosocial Hx Smoking Status: No Smoking History: Never smoked Have you smoked in the past 12 months: No Number of Cigarettes Smoked Daily: 0 Information on smoking cessation initiated: No Hx Alcohol Use: No Drug/Substance Use Hx: No Substance Use Type: None Hx Substance Use Treatment: No Review of Systems - Review of Systems Able to Perform ROS?: Yes Comments:: 07/11/17 19:21 CONSTITUTIONAL: Absent: fever, chills, diaphoresis, generalized weakness, malaise, loss of appetite HEENT: Absent: rhinorrhea, nasal congestion, throat pain, throat swelling, difficulty swallowing, mouth swelling, ear pain, eye pain, visual Changes CARDIOVASCULAR: Absent: chest pain, loss of consciousness, palpitations, irregular heart rate, peripheral edema RESPIRATORY: Absent: cough, shortness of breath, dyspnea with exertion, orthopnea, wheezing, stridor, hemoptysis GASTROINTESTINAL: Absent: abdominal pain, abdominal distension, nausea, vomiting, diarrhea, constipation, melena, hematochezia GENITOURINARY: Absent: dysuria, frequency, urgency, hesitancy, hematuria, flank pain, genital pain MUSCULOSKELETAL: Absent: myalgia, arthralgia, joint swelling SKIN: Absent: rash, itching, pallor HEMATOLOGIC/IMMUNOLOGIC: Absent: easy bleeding, easy bruising, lymphadenopathy, frequent infections ENDOCRINE: Absent: unexplained weight gain, unexplained weight loss, heat intolerance, cold intolerance NEUROLOGIC: Absent: headache, focal weakness or paresthesias, dizziness, unsteady gait, seizure, mental status changes, bladder or bowel incontinence PSYCHIATRIC: Absent: anxiety, depression, suicidal or homicidal ideation, hallucinations. Is the patient limited Egyptian proficient: No *Physical Exam - Vital Signs Last Vital Signs Temp Pulse Resp BP Pulse Ox 98 F 67 18 99/58 99 07/11/17 12:33 07/11/17 12:33 07/11/17 12:33 07/11/17 12:33 07/11/17 12:33 - Physical Exam Comments: 07/11/17 19:21 GENERAL: Well developed, well nourished. Awake and alert. No acute distress. HEENT: Normocephalic, atraumatic. PERRLA, EOMI. No conjunctival pallor. Sclera are non- icteric. Moist mucous membranes. Oropharynx is clear. NECK: Supple. Full ROM. No JVD. Carotid pulses 2+ and symmetric, without bruits. No thyromegaly. No lymphadenopathy. CARDIOVASCULAR: Regular rate and rhythm. No murmurs, rubs, or gallops. Distal pulses are 2+ and symmetric. PULMONARY: No evidence of respiratory distress. Lungs clear to auscultation bilaterally. No wheezing, rales or rhonchi. ABDOMINAL: Soft. Non-tender. Non-distended. No rebound or guarding. No organomegaly. Normoactive bowel sounds. MUSCULOSKELETAL Normal range of motion at all joints. No bony deformities or tenderness. No CVA tenderness. EXTREMITIES: No cyanosis. No clubbing. No edema. No calf tenderness. SKIN: Warm and dry. Normal capillary refill. No rashes. No jaundice. NEUROLOGICAL: Alert, awake, appropriate. Cranial nerves 2-12 intact. No deficits to light touch and temperature in face, upper extremities and lower extremities. No motor deficits in the in face, upper extremities and lower extremities. Normoreflexic in the upper and lower extremities. Normal speech. Toes are down- going bilaterally. Gait is normal without ataxia. PSYCHIATRIC: Cooperative. Good eye contact. Appropriate mood and affect. ED Treatment Course - LABORATORY CBC & Chemistry Diagram: 07/11/17 15:49 07/11/17 15:49 *DC/Admit/Observation/Transfer Diagnosis at time of Disposition: UTI (urinary tract infection) Qualifiers: Urinary tract infection type: acute cystitis Hematuria presence: with hematuria Qualified Code(s): N30.01 - Acute cystitis with hematuria Diarrhea Qualifiers: Diarrhea type: unspecified type Qualified Code(s): R19.7 - Diarrhea, unspecified - Discharge Dispostion Disposition: HOME Condition at time of disposition: Stable Admit: No - Prescriptions Prescriptions: Cephalexin Monohydrate [Keflex -] 500 mg PO BID #14 capsule - Referrals Referrals: Neelam Ryan MD [Primary Care Provider] - - Patient Instructions Printed Discharge Instructions: DI for Urinary Tract Infection (UTI), DI for Diarrhea and Traveler's Diarrhea -- Adult Additional Instructions: You have a urinary tract infection. This caused by bacteria. Please drink plenty of fluids. Take your antibiotics as prescribed (Keflex) twice a day for 7 days. Finish the entire dose even if you feel better. You may take Tylenol or Motrin as needed for pain Please follow up with your primary care doctor this week. Return to the emergency department if you have fevers, chills, nausea, vomiting , back pain, or have any changes in your symptoms. - Post Discharge Activity
--- NOTE | 2017-07-11 15:38 | PDOC ---
*Physical Exam - Vital Signs Last Vital Signs Temp Pulse Resp BP Pulse Ox 98 F 67 18 99/58 99 07/11/17 12:33 07/11/17 12:33 07/11/17 12:33 07/11/17 12:33 07/11/17 12:33 - Physical Exam Comments: 07/11/17 15:38 The patient was examined by [LUIS Ram] under my direct supervision. I personally evaluated the patient. I concur with the above findings and the plan of care. *DC/Admit/Observation/Transfer - Referrals Referrals: Neelam Ryan MD [Primary Care Provider] - - Patient Instructions - Post Discharge Activity
[2017-07-11 16:00] LABS: BASO % 0.2 % (0-2.0); EOS % 3.3 % (0-4.5); HEMATOCRIT 36.2 % (32.4-45.2); HEMOGLOBIN 12.5 GM/dL (10.7-15.3); LYMPH % 11.9 % (8-40); MCH 30.3 pg (25.7-33.7); MCHC 34.6 g/dl (32.0-36.0); MEAN CELL VOLUME 87.6 fl (80-96); MEAN PLT VOLUME 8.3 fl (7.5-11.1); MONO % 5.1 % (3.8-10.2); NEUT % 79.5 % (42.8-82.8); PLATELET COUNT 135 K/MM3 (134-434); RBC 4.14 M/mm3 (3.60-5.2); RDW 13.3 % (11.6-15.6); WHITE BLOOD COUNT 4.9 K/mm3 (4.0-10.0)
[2017-07-11 16:13] LABS: INR 0.97 (0.82-1.09)
[2017-07-11 16:48] LABS: ALBUMIN 3.9 g/dl (3.4-5.0); ANION GAP 6 (8-16); BILIRUBIN,TOTAL 0.5 mg/dL (0.2-1.0); BLOOD UREA NITROGEN 21 mg/dL (7-18); CALCIUM 8.4 mg/dL (8.5-10.1); CHLORIDE 108 mmol/L (98-107); CO2 25 mmol/L (21-32); GLUCOSE,RANDOM 154 mg/dL (74-106); POTASSIUM 3.7 mmol/L (3.5-5.1); SGOT/AST 14 U/L (15-37); SGPT/ALT 30 U/L (12-78); SODIUM 139 mmol/L (136-145)
[2017-07-11 16:49] LABS: ALK PHOS 95 U/L (45-117)
[2017-07-11 17:54] LABS: URINE APPEARANCE CLOUDY; URINE BILIRUBIN NEGATIVE (<2.0 mg/dL); URINE BLOOD 1+ (NEGATIVE); URINE COLOR YELLOW; URINE GLUCOSE (UA) NEGATIVE (NEGATIVE); URINE KETONE NEGATIVE (NEGATIVE); URINE NITRITE NEGATIVE (NEGATIVE); URINE UROBILINOGEN NEGATIVE mg/dL (0.2-1.0)
[2017-07-11 18:01] LABS: URINE LEUK ESTERASE 3+ (NEGATIVE); URINE PROTEIN 1+ (NEGATIVE)
[2017-07-11 18:02] LABS: EPI CELLS RARE /HPF (FEW); URINE MUCUS MANY
[2017-07-11 19:18] VITALS: BP 102/60; PULSE 62
== END 2017-07-11 19:19 | disposition home or self-care (01) ==
LOC: JER 12:28
PROC: 3E0337Z Introduction of Electrolytic and Water Balance Substance into Peripheral Vein, Percutaneous Approach (ICD-10-PCS; principal; 2017-07-11)
DX: N30.01 Acute cystitis with hematuria (principal); E03.9 Hypothyroidism, unspecified; E11.9 Type 2 diabetes mellitus without complications; F32.9 Major depressive disorder, single episode, unspecified
CPT/HCPCS: 36415; 76705-TC; 80053; 81003; 81015; 83690; 85025; 85610; 87086; 96360; 99284-25; J7030

== ENCOUNTER 2018-02-18 10:51 | Emergency (ER) | payer OTHER ==
[2018-02-18 11:06] VITALS: BP 116/64; PULSE 57; TEMP 98.2
--- NOTE | 2018-02-18 11:43 | PDOC ---
History of Present Illness - General Chief Complaint: Ear Problem Stated Complaint: EAR PROBLEM Time Seen by Provider: 02/18/18 11:34 - History of Present Illness Initial Comments: 58-year-old female with a past medical history significant for dyslipidemia, hypothyroidism and schizoaffective disorder on multiple psych meds presents for evaluation of 2 episodes of diarrhea which occurred last week and bilateral ear pain for 2 months. No other associated symptoms. 02/18/18 11:38 Past History - Past Medical History Allergies/Adverse Reactions: Allergies Allergy/AdvReac Type Severity Reaction Status Date / Time pimozide [From Orap] Allergy DYSTONIC Verified 02/18/18 11:01 REACTION risperidone [From Risperdal] AdvReac ANXIETY Verified 02/18/18 11:01 Home Medications: Ambulatory Orders Aripiprazole [Abilify] 20 mg PO DAILY 07/11/17 Benztropine Mesylate [Cogentin -] 0 mg PO DAILY 07/11/17 Bupropion HCl [Wellbutrin Xl] 300 mg PO DAILY 07/11/17 Levothyroxine [Synthroid -] 150 mcg PO DAILY 07/11/17 Sertraline HCl [Zoloft] 0 mg PO DAILY 07/11/17 Anemia: No Asthma: No Cancer: No Cardiac Disorders: Yes (LEAKY VALVE) CVA: No COPD: No CHF: No Dementia: No Diabetes: Yes GI Disorders: Yes Disorders: No HTN: Yes Hypercholesterolemia: Yes 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) Psychiatric Problems: Yes (BIPOLAR, DEPRESSION.) Seizures: No Thyroid Disease: Yes (HYPOTHYROIDISM) - Surgical History Abdominal Surgery: No Appendectomy: No Cardiac Surgery: No Cholecystectomy: No Lung Surgery: No Neurologic Surgery: No Orthopedic Surgery: Yes (RIGHT KNEE replacement 04/27/2011 /ltknee pinning ) - Immunization History Immunization Up to Date: No - Suicide/Smoking/Psychosocial Hx Smoking Status: No Smoking History: Unknown if ever smoked Have you smoked in the past 12 months: No Number of Cigarettes Smoked Daily: 0 Hx Alcohol Use: No Drug/Substance Use Hx: No Substance Use Type: None Hx Substance Use Treatment: No Review of Systems - Review of Systems Constitutional: No: Chills, Diaphoresis, Fever, Malaise, Night Sweats HEENTM: Yes: See HPI, Ear Pain. No: Hearing Loss ABD/GI: Yes: Diarrhea. No: Abdominal Distended, Blood Streaked Bowels, Constipated, Difficulty Swallowing, Nausea, Poor Appetite, Poor Fluid Intake, Rectal Bleeding, Vomiting, Indigestion, Abdominal cramping, Tarry Stools : No: Burning, Dysuria, Discharge All Other Systems: Reviewed and Negative *Physical Exam - Vital Signs Last Vital Signs Temp Pulse Resp BP Pulse Ox 98.2 F 57 L 18 116/64 98 02/18/18 11:04 02/18/18 11:04 02/18/18 11:04 02/18/18 11:04 02/18/18 11:04 - Physical Exam Comments: HEAD: NC/AT EYES: Conjuntiva clear Ears: Mild irritation of bilateral canals tympanic membrane normal. No discharge. No tenderness about the tragus or with pinna manipulation NOSE: No d/c THROAT: Moist mucous membrances, oral pharanx clear, uvula midline NECK: Supple without adenopathy CARDIAC: S1 S2 LUNGS: CTA Full and Equal breath sounds ABDOMEN: Soft NT ND MS: Full ROM in all joints without edema NEUROLOGIC: No gross sensory or motor deficits, NVID SKIN: Normal color and temperature no lesions or rashes 02/18/18 11:39 Medical Decision Making - Medical Decision Making I will refer her to GI and ENT her exam is benign exceot for mils ear canal irritation 02/18/18 11:41 *DC/Admit/Observation/Transfer Diagnosis at time of Disposition: Ear pain, right, Ear pain, left, Diarrhea - Discharge Dispostion Disposition: HOME Condition at time of disposition: Stable Decision to Admit order: No - Referrals Referrals: Chris Cisse MD [Staff Physician] - Shila Mckeon MD [Staff Physician] - - Patient Instructions Printed Discharge Instructions: DI for Ear Pain-Adult, Diarrhea Additional Instructions: Return to the emergency room should symptoms worsen or go unresolved. Please follow-up with your nose and throat doctor as well as gastroenterology in the next 2-3 days for further evaluation and treatment options. - Post Discharge Activity
== END 2018-02-18 11:48 | disposition home or self-care (01) ==
LOC: JERFT 10:51
DX: H92.03 Otalgia, bilateral (principal); I10 Essential (primary) hypertension; E11.9 Type 2 diabetes mellitus without complications; E78.00 Pure hypercholesterolemia, unspecified; E03.9 Hypothyroidism, unspecified; F31.9 Bipolar disorder, unspecified; F25.9 Schizoaffective disorder, unspecified
CPT/HCPCS: 99281-25

== ENCOUNTER 2020-06-09 04:33 | Day surgery (SDC) | payer OTHER ==
[2020-06-07 19:14] VITALS: BMI 27.0
[2020-06-09] MEDS ORDERED: oxyCODONE HCL 5 MG TABLET PO PRN (09:42)
[2020-06-09] MEDS ORDERED: ONDANSETRON 4 MG/2 ML VIAL IVPUSH PRN (09:42)
[2020-06-09] MEDS ORDERED: LACTATED RINGERS SOLUTION 1,000 ML IV SCH (09:45)
[2020-06-09] MEDS ORDERED: LIDOCAINE HCL 1%, 10 MG/ML (20ML VIAL) NR ONE ×2 (10:13)
[2020-06-09] MEDS ORDERED: BUPIVACAINE HCL/PF 0.5% (5 MG/ML) 30 ML VIAL IJ ONE ×2 (10:13)
[2020-06-09] MEDS ORDERED: ceFAZolin SODIUM 1 GM VIAL IVPB ONE (10:15)
[2020-06-09 11:52] VITALS: PULSE 62
[2020-06-09 13:25] VITALS: BP 148/58; TEMP 97.5
== END 2020-06-09 12:50 | disposition home or self-care (01) ==
LOC: JASU-SURG 04:33
PROVIDERS: ATTEND Orthopaedic Surgery
PROC: 0LB70ZZ Excision of Right Hand Tendon, Open Approach (ICD-10-PCS; 2020-06-09)
PROC: 0LN70ZZ Release Right Hand Tendon, Open Approach (ICD-10-PCS; principal; 2020-06-09 09:30)
DX: M65.331 Trigger finger, right middle finger (principal)
CPT/HCPCS: 82962; 94760